=== PATIENT | female | born 1985 | race Caucasian/White ===

== ENCOUNTER 2022-11-18 15:55 | Outpatient (CLI) | payer SELFPAY | END 2022-11-18 15:56 | disposition home or self-care (01) | PROVIDERS: Visit Provider Family Medicine | DX: Z00.00 Encounter for general adult medical examination without abnormal findings (principal); E11.9 Type 2 diabetes mellitus without complications; E05.90 Thyrotoxicosis, unspecified without thyrotoxic crisis or storm; D64.9 Anemia, unspecified; R53.83 Other fatigue; Z13.6 Encounter for screening for cardiovascular disorders | CPT/HCPCS: 80053; 80061; 82607; 82728; 84443 ==

== ENCOUNTER 2023-08-11 01:25 | Emergency (ER) | payer OTHER, SELFPAY ==
[2023-08-11 01:44] LABS: Appearance Urine Cloudy (Clear); Bilirubin Urine Negative (Negative); Blood Urine 3+ (Negative); Color Urine Amber (Yellow); Glucose Urine Negative (Negative); Ketones Urine Negative (Negative); Leukocyte Esterase Urine 2+ (Negative); Nitrite Urine Negative (Negative); Protein Urine 2+ (Negative); Urobilinogen Urine 0.2 (0.2-1.0)
[2023-08-11 01:45] VITALS: BP 147/90; PULSE 91; RESP 16; TEMP 38.9; O2SAT 98; BMI 28.3
--- NOTE | 2023-08-11 01:49 | ED.GENADULT ---
HPI - General Adult General Chief complaint: Urogenital Problems, Female Stated complaint: Possible UTI /Thyroid issues. Time Seen by Provider: 08/11/23 01:27 History of Present Illness HPI narrative: fever, burning when urinating, states she thinks thyroid may be off as similar symptoms in past. pt also states 2 weeks of cough but cough is now gone. took tylenol at 12, did not help. 38 year-old woman here with concern of burning with urination. A few days. She has been experiencing fever as well. She is feeling achy. Does have a history of hyperthyroid and had her dosing of methimazole changed and is worried that her thyroid might be off as she felt like this prior. Is due for a recheck in 2 weeks and would like labs done if possible. Had a recent cough cold course but that had resolved. Treated with acetaminophen. Low back ache in particular. Acetaminophen wasn't helpful. Is rather nauseated. I note her to have a fever of 102 on arrival. Related Data Home Medications Medication Instructions Recorded Confirmed methimazole 10 mg tablet 10 mg PO DAILY 11/18/22 08/11/23 Previous Rx's Medication Instructions Recorded cephalexin 500 mg capsule 500 mg PO TID 7 days #21 caps 08/11/23 ondansetron HCl 4 mg tablet 4 mg PO Q4-6H PRN nausea and 08/11/23 vomiting #12 tabs phenazopyridine 200 mg tablet 200 mg PO Q6-8H PRN dysuria #10 08/11/23 (Pyridium) tabs Allergies Allergy/AdvReac Type Severity Reaction Status Date / Time No Known Drug Allergies Allergy Verified 11/18/22 15:22 Review of Systems Status of ROS: Reports: 6 or more systems reviewed and unremarkable except as noted in History and below [facility] Medical History Hyperthyroidism (~2020) ?E05.90 - Thyrotoxicosis, unspecified without thyrotoxic crisis or storm (ICD-10) Gabonese speaking patient Breech presentation ?O32.1XX0 - Maternal care for breech presentation, not applicable or unspecified (ICD-10) Postoperative anemia due to acute blood loss ?D62 - Acute posthemorrhagic anemia (ICD-10) Surgical History H/O wisdom tooth extraction (2009) ?K08.409 - Partial loss of teeth, unspecified cause, unspecified class (ICD-10) History of cholecystectomy (2008) ?Z90.49 - Acquired absence of other specified parts of digestive tract (ICD-10) Status post tubal ligation (2020) ?Z98.51 - Tubal ligation status (ICD-10) Status post primary low transverse section (2020) ?Z98.891 - History of uterine scar from previous surgery (ICD-10) Family History Mother Diabetes Paternal Grandmother Diabetes Aunt Hyperthyroidism Social History Narrative: Significant other for 18 years, homemaker/computer networking instructor adjunct, 4 children Nonsmoker Rare alcohol use Exercise 7 days a week: Eyad, jogging, walking Gabonese-speaking patient, needs resident services manager, originally from [place] Smoking Status: Never smoker Non-prescribed substance use: denies use Little interest or pleasure in doing things: not at all Feeling down, depressed, or hopeless: several days Exam Narrative: Exam Narrative: Carefully groomed. Accompanied by significant other. Very pleasant. Appears uncomfortable. Breathing easily. Heart is in a elevated rate. Regular rhythm. Lungs are clear. Sore to percussion in the law back and suprapubic area. No rashes. Thyroid appears symmetrical and nontender. Neck is supple. Skin quite warm and dry without rash. Const: Vital Signs, click to edit/add: Vital Signs - 24 hr 08/11/23 01:45 Temperature 102.0 F H Pulse Rate [Pulse Oximeter] 91 Respiratory Rate 16 Blood Pressure [Le ft Upper Arm] 147/90 H Pulse Oximetry 98 Oxygen Delivery Me thod Room Air Documenting provider has reviewed patient's vital signs: yes Course Vital Signs Vital signs: Initial Vital Signs Temperature 102.0 F H 08/11/23 01:45 Temperature Source Temporal Artery Scan 08/11/23 01:45 Pulse Rate 91 08/11/23 01:45 Respiratory Rate 16 08/11/23 01:45 Blood Pressure 147/90 H 08/11/23 01:45 Blood Pressure Mean 109 H 08/11/23 01:45 Blood Pressure Position Sitting 08/11/23 01:45 Pulse Oximetry 98 08/11/23 01:45 Oxygen Delivery Method Room Air 08/11/23 01:45 Vital Signs Temperature 102.0 F H 08/11/23 01:45 Pulse Rate 91 08/11/23 01:45 Respiratory Rate 16 08/11/23 01:45 Blood Pressure 147/90 H 08/11/23 01:45 Pulse Oximetry 98 08/11/23 01:45 Oxygen Delivery Method Room Air 08/11/23 01:45 Temperature 98.9 F 08/11/23 03:55 Pulse Rate 86 08/11/23 03:55 Respiratory Rate 16 08/11/23 03:55 Blood Pressure 141/83 H 08/11/23 03:55 Pulse Oximetry 99 08/11/23 03:55 Oxygen Delivery Method Room Air 08/11/23 03:55 Medications Administered Medications: Discontinued Medications Generic Name Dose Route Start Last Admin Trade Name Freq PRN Reason Stop Dose Admin Sodium Chloride 1,000 mls @ 1,000 mls/hr 08/11/23 01:59 08/11/23 03:22 0.9 % Sodium Chloride 1000 Ml IV 08/11/23 02:58 Infused .Q1H ONE Infusion Ceftriaxone Sodium 1 gm/ 100 mls @ 200 mls/hr 08/11/23 02:02 08/11/23 02:57 Sodium Chloride IVPB 08/11/23 02:03 Infused ONCE ONE Infusion Ketorolac Tromethamine 15 mg 08/11/23 01:59 08/11/23 02:30 Ketorolac 15 Mg/Ml Inj IVP 08/11/23 02:00 15 mg ONCE ONE Administration Ondansetron HCl 4 mg 08/11/23 01:59 08/11/23 02:30 Ondansetron 2 Mg/Ml Inj IVP 08/11/23 02:00 4 mg ONCE ONE Administration Medical Decision Making MDM Narrative Medical decision making narrative: would screen for influenza considering community prevalence. i doubt that hyperthyroidism is contributing to acute illness here today. will check in particular for uti. with sepsis? other viral process unspecified possible. would benefit from iv fluids. ketorolac. zofran. urine clearly infected. covid/influenza negative. rocephin given cultures pending. likely urinary tract source to fever vitals stable and fever resolved. appears improved. see patient discharge plan for more discussion Lab Data Lab results reviewed: Yes I reviewed the patient's lab results Labs: Lab Results 08/11/23 08/11/23 08/11/23 Range/Units 01:30 01:51 02:00 WBC 13.47 H (4.50-11.00) K/uL RBC 3.82 L (4.00-5.20) m/uL Hgb 11.4 L (12.0-16.0) gm/dL Hct 33.5 (33.0-51.0) % MCV 88 (80-100) fL MCH 30 (26-34) pg MCHC 34 (32-36) gm/dL RDW Coeff of Sloan 12.5 (11.5-15.5) % Plt Count 241 (140-440) K/uL Neut % (Auto) 83.4 H (42.0-72.0) % Lymph % (Auto) 10.2 L (20-44) % [place] % (Auto) 5.6 (0.0-11.0) % Eos % (Auto) 0.3 (0.0-7.0) % Baso % (Auto) 0.1 (0.0-3.0) % Neut # (Auto) 11.20 H (1.7-7.0) K/uL Lymph # (Auto) 1.40 (0.90-2.90) K/uL [place] # (Auto) 0.80 (0.00-0.90) K/UL Eos # (Auto) 0.00 (0.00-0.50) K/uL Baso # (Auto) 0.00 (0.00-0.30) K/uL Abs Immat Gran (auto) 0.10 (0.00-0.30) K/uL Imm/Tot Granulo (auto) 0.4 % Sodium 137 (135-149) mmol/L Potassium 3.1 L (3.6-5.1) mmol/L Chloride 104 (96-114) mmol/L Carbon Dioxide 27 (20-32) mmol/L Anion Gap 6 L (7-15) mEq/L BUN 14 (5-24) mg/dL Creatinine 0.6 (0.5-1.5) mg/dL Estimated Creat Clear 103.10 Estimated GFR 116 ml/min Glucose 137 H (60-115) mg/dL Calcium 8.8 (8.4-10.6) mg/dL C-Reactive Protein 3.2 H (0.5-1.0) mg/dL TSH 0.106 L (0.270-4.20) uIU/mL Free T4 1.44 (0.70-1.85) ng/dL Urine Color Leora A (Yellow) Urine Appearance Cloudy A (Clear) Urine pH 7.0 (5.0-8.5) Ur Specific [place] 1.020 (1.000-1.030) Urine Protein 2+ A (Negative) Urine Glucose (UA) Negative (Negative) Urine Ketones Negative (Negative) Urine Blood 3+ A (Negative) Urine Nitrite Negative (Negative) Urine Bilirubin Negative (Negative) Urine Urobilinogen 0.2 (0.2-1.0) Ur Leukocyte Esterase 2+ A (Negative) Urine RBC 25-50 A (0-2) Urine WBC >100 A (0-5) Ur Squamous Epith Cells Few (None-Few) Urine Bacteria Moderate A (None) SARS-CoV-2 (PCR) Negative SARS-CoV-2 (Negative) Influenza Type A (PCR) Negative PCR FLU A (Negative) Influenza Type B (PCR) Negative PCR FLU B (Negative) Lab Acknowledgement 08/11/23 Range/Units 03:34 WBC (4.50-11.00) K/uL RBC (4.00-5.20) m/uL Hgb (12.0-16.0) gm/dL Hct (33.0-51.0) % MCV (80-100) fL MCH (26-34) pg MCHC (32-36) gm/dL RDW Coeff of Sloan (11.5-15.5) % Plt Count (140-440) K/uL Neut % (Auto) (42.0-72.0) % Lymph % (Auto) (20-44) % [place] % (Auto) (0.0-11.0) % Eos % (Auto) (0.0-7.0) % Baso % (Auto) (0.0-3.0) % Neut # (Auto) (1.7-7.0) K/uL Lymph # (Auto) (0.90-2.90) K/uL [place] # (Auto) (0.00-0.90) K/UL Eos # (Auto) (0.00-0.50) K/uL Baso # (Auto) (0.00-0.30) K/uL Abs Immat Gran (auto) (0.00-0.30) K/uL Imm/Tot Granulo (auto) % Sodium (135-149) mmol/L Potassium (3.6-5.1) mmol/L Chloride (96-114) mmol/L Carbon Dioxide (20-32) mmol/L Anion Gap (7-15) mEq/L BUN (5-24) mg/dL Creatinine (0.5-1.5) mg/dL Estimated Creat Clear Estimated GFR ml/min Glucose (60-115) mg/dL Calcium (8.4-10.6) mg/dL C-Reactive Protein (0.5-1.0) mg/dL TSH (0.270-4.20) uIU/mL Free T4 (0.70-1.85) ng/dL Urine Color (Yellow) Urine Appearance (Clear) Urine pH (5.0-8.5) Ur Specific [place] (1.000-1.030) Urine Protein (Negative) Urine Glucose (UA) (Negative) Urine Ketones (Negative) Urine Blood (Negative) Urine Nitrite (Negative) Urine Bilirubin (Negative) Urine Urobilinogen (0.2-1.0) Ur Leukocyte Esterase (Negative) Urine RBC (0-2) Urine WBC (0-5) Ur Squamous Epith Cells (None-Few) Urine Bacteria (None) SARS-CoV-2 (PCR) (Negative) Influenza Type A (PCR) (Negative) Influenza Type B (PCR) (Negative) Lab Acknowledgement Test Added Discharge Plan Discharge Clinical Impression: Urinary tract infection, Hyperthyroidism Patient Disposition: Home w/ Parent or Adult Condition: Improved Additional Instructions: Focus on hydration. Can take up to 800 mg of ibuprofen or up to 1000 mg of acetaminophen per dose. A urine culture will be pending here; we will call you if any changes to medicine need to be made. I have sent in cephalexin and Pyridium to your pharmacy. The pyridium is for burning. The cephalexin is the antibiotic. You can discuss with our clinic front desk specialist about signing up for [employer] to access your labs for your upcoming doctors appointment. Can take copies though of what we did here today. Mantente hidratado Puede alina hasta 800 mg de ibuprofeno o hasta 1000 mg de paracetamol por dosis. Un urocultivo estar? pendiente aqu?; Lo llamaremos si es necesario realizar alg?n cambio en los medicamentos. He enviado cefalexina y piridio a davis farmacia. El peridio es para quemar. La cefalexina es el antibi?sherine. Puede hablar con la recepci?n de nuestra cl?shiv sobre la posibilidad de inscribirse en MyChart para acceder a sheyla laboratorios para davis pr?xima zeenat con el m?dico. Sin embargo, puedo alina copias de lo que hicimos aqu? hoy Prescriptions: New cephalexin 500 mg capsule 500 mg PO TID 7 Days Qty: 21 0RF ondansetron HCl 4 mg tablet 4 mg PO Q4-6H PRN (Reason: nausea and vomiting) Qty: 12 0RF phenazopyridine [Pyridium] 200 mg tablet 200 mg PO Q6-8H PRN (Reason: dysuria) Qty: 10 0RF No Action methimazole 10 mg tablet 10 mg PO DAILY Follow Up/Referrals: Provider,Not a Local [Primary Care Provider] - Stand Alone Forms: [facility] Info Instructions
[2023-08-11 01:52] LABS: Bacteria Urine Moderate; RBC Urine 25-50 (0-2); Squamous Epithelial Cell Urine Few (None-Few)
[2023-08-11 01:53] LABS: WBC Urine >100 (0-5)
[2023-08-11 02:09] LABS: Basophils Percent Auto 0.1 % (0.0-3.0); Eosinophils Percent Auto 0.3 % (0.0-7.0); Hematocrit 33.5 % (33.0-51.0); Hemoglobin* 11.4 gm/dL (12.0-16.0); Immature Granulocytes Pct Auto 0.4 %; Lymphocytes Percent Auto 10.2 % (20-44); Mean Corpuscular HGB Conc 34 gm/dL (32-36); Mean Corpuscular Hemoglobin 30 pg (26-34); Mean Corpuscular Volume 88 fL (80-100); Monocytes Percent Auto 5.6 % (0.0-11.0); Neutrophils Percent Auto 83.4 % (42.0-72.0); Platelet Count* 241 K/uL (140-440); RDW Coefficient of Variation % 12.5 % (11.5-15.5); Red Blood Count 3.82 m/uL (4.00-5.20); White Blood Count* 13.47 K/uL (4.50-11.00)
[2023-08-11 02:11] LABS: Slide Review Reflex No
[2023-08-11 02:24] LABS: Chloride* 104 mmol/L (96-114); Potassium* 3.1 mmol/L (3.6-5.1); Sodium* 137 mmol/L (135-149)
[2023-08-11 02:26] LABS: Creatinine* 0.6 mg/dL (0.5-1.5); Estimated Glomerular Filt Rate 116 ml/min
[2023-08-11 02:27] LABS: Anion Gap 6 mEq/L (7-15); Blood Urea Nitrogen* 14 mg/dL (5-24); Carbon Dioxide* 27 mmol/L (20-32)
[2023-08-11 02:28] LABS: Calcium* 8.8 mg/dL (8.4-10.6); Glucose* 137 mg/dL (60-115)
[2023-08-11 02:30] LABS: C Reactive Protein* 3.2 mg/dL (0.5-1.0)
[2023-08-11] MEDS: 0.9 % SODIUM CHLORIDE 1000 ml 1,000 ML IV (02:30)
[2023-08-11] MEDS: cefTRIAXone 1 GM in 0.9 % SODIUM CHLORIDE Mini-bag 100 ML IVPB (02:30)
[2023-08-11] MEDS: KETOROLAC 15 MG/ML inj IVP (02:30)
[2023-08-11] MEDS: ONDANSETRON 2 MG/ML inj 4 MG IVP (02:30)
[2023-08-11 02:37] LABS: PCR FLU A Negative PCR FLU A (Negative); PCR FLU B Negative PCR FLU B (Negative); SARS PCR* Negative SARS-CoV-2 (Negative)
[2023-08-11 02:58] LABS: Thyroid Stimulating Hormone* 0.106 uIU/mL (0.270-4.20)
[2023-08-11 03:02] VITALS: TEMP 37.1
[2023-08-11 03:31] VITALS: TEMP 37.1
[2023-08-11 03:55] VITALS: BP 141/83; PULSE 86; RESP 16; TEMP 37.2; O2SAT 99
[2023-08-11 04:05] LABS: Free T4 Free Thyroxine* 1.44 ng/dL (0.70-1.85)
== END 2023-08-11 03:58 | disposition home or self-care (01) ==
PROVIDERS: Emergency Provider Family Medicine
DX: N39.0 Urinary tract infection, site not specified (principal); E05.90 Thyrotoxicosis, unspecified without thyrotoxic crisis or storm
CPT/HCPCS: 36415; 80048; 81001; 84439; 84443; 85025; 86140; 87086; 87186; 87631; 96365; 96375; 99284; J0696; J1885; J2405; J7030

== ENCOUNTER 2024-11-06 19:41 | Outpatient (CLI) | payer OTHER, SELFPAY | END 2024-11-06 19:42 | disposition home or self-care (01) | LOC: NFLDREF 11-09 14:52 | PROVIDERS: Visit Provider Nurse Practitioner Family | DX: R30.0 Dysuria (principal); N30.00 Acute cystitis without hematuria | CPT/HCPCS: 87086 ==